=== PATIENT | female | born 1975 | race Caucasian/White ===

== ENCOUNTER 2017-10-15 14:25 | Emergency (ER) | payer SELFPAY ==
[~2017-10-15] VITALS: Ht 160 cm; Wt 52.0 kg
[~2017-10-15 14:25] MED LIST: AUGM875T3 PO; LACT PO; LEVO25TA4 PO; LORA-392 PO; Simethicone Chew CHEW; TRAM50 PO
[2017-10-15 14:32] VITALS: BP 104/70; PULSE 102; RESP 18; TEMP 98.8; O2SAT 97
[2017-10-15] MEDS ORDERED: AMOX500C PO (15:36)
--- NOTE | 2017-10-15 15:37 | PD ---
HPI Chief Complaint: Cold / Flu Symptoms Time Seen by Provider: 15:22 Travel History International Travel<30 days: No Contact w/Intl Traveler<30days: No Traveled to known affect area: No History of Present Illness HPI 42-year-old female here with sore throat and fever 4 days. She reports pain with swallowing but does not endorse difficulty swallowing. She is able to eat and drink without difficulty. Symptom severity is moderate. No aggravating or alleviating factors. PFSH Past Medical History Anxiety: Yes Depression: Yes Cancer: No Cardiovascular Problems: No Endocrine: No Genitourinary: No Immune Disorder: No Musculoskeletal: Yes Neurologic: No Psychiatric: Yes (bipolar) Reproductive: No Respiratory: No ?: Not LMP: h/o tubal ligation Tubal Ligation: Yes Past Surgical History Gynecologic Surgery: Yes (tubal ligation) Social History Alcohol Use: No Tobacco Use: No Substance Use: Yes (recent relapse, crack cocaine, have not used in 3 weeks) Allergies-Medications (Allergen,Severity, Reaction): Coded Allergies: meperidine (Verified Allergy, Severe, rash, 08/07/17) Reported Meds & Prescriptions Reported Meds & Active Scripts Active Ultram (Tramadol HCl) 50 Mg Tab 50 Mg PO Q6H PRN Augmentin (Amoxicillin-Clavulanate) 875-125 Mg Tab 1 Tab PO BID Levothyroxine (Levothyroxine Sodium) 25 Mcg Tab 25 Mcg PO DAILY@0600 Acidophilus/l-Sporogenes (Lactobacillus Acidophilus) 35 Million Cell-25 Million Cell Tab 1 Tab PO TID [Simethicone Chew] 80 MG Chew 80 Mg CHEW Q4H PRN Ativan (Lorazepam) 0.5 Mg Tab 0.5 Mg PO Q6H PRN Review of Systems Except as stated in HPI: all other systems reviewed are Neg General / Constitutional: Positive: Fever Eyes: No: Visual changes HENT: Positive: Sore Throat Cardiovascular: No: Chest Pain or Discomfort Respiratory: No: Shortness of Breath Gastrointestinal: No: Abdominal Pain Genitourinary: No: Dysuria Physical Exam Narrative GENERAL: Alert disheveled thin 42-year-old female SKIN: Warm and dry. HEAD: Normocephalic. EYES: No injection or drainage. THROAT: Pharyngeal erythema. No tonsillar hypertrophy. Small amount of exudate. Uvula midline. Area patent. NECK: Supple CARDIOVASCULAR: Regular rate and rhythm RESPIRATORY: Breath sounds equal bilaterally. No accessory muscle use. GASTROINTESTINAL: Abdomen soft, non-tender, nondistended. Data Data Last Documented VS Vital Signs Date Time Temp Pulse Resp B/P (MAP) Pulse Ox O2 Delivery O2 Flow Rate FiO2 10/15/17 14:32 98.8 102 18 104/70 (81) 97 Room Air MDM Medical Decision Making Medical Screen Exam Complete: Yes Emergency Medical Condition: Yes Differential Diagnosis Strep pharyngitis, viral pharyngitis, URI Narrative Course 42-year-old female here with sore throat and fever. She reports frequent history of strep pharyngitis. Reporting similar symptoms in the past. Patient is nontoxic-appearing. Diagnosis Primary Impression: Pharyngitis Qualified Codes: J02.9 - Acute pharyngitis, unspecified Referrals: Primary Care Physician Scripts Amoxicillin (Amoxicillin) 500 Mg Cap 500 MG PO TID for Infection for 10 Days, CAP 0 Refills Prov: Yaquelin Zeng 10/15/17 Disposition: 01 DISCHARGE HOME Condition: Stable Yaquelin Zeng Oct 15, 2017 15:37
== END 2017-10-15 16:29 | disposition home or self-care (01) ==
LOC: NEPK 14:25
DX: J02.9 Acute pharyngitis, unspecified (principal); F41.9 Anxiety disorder, unspecified; F31.9 Bipolar disorder, unspecified
CPT/HCPCS: 99283